=== PATIENT | female | born 1965 | race Caucasian/White ===

== ENCOUNTER → 2016-09-05 | Outpatient (CLI) | payer BC ==
[~2016-09-05] MED LIST: NF-KET2% TOP
--- NOTE | 2016-09-05 09:51 | Diagnostic Imaging Report ---
PROCEDURE: MRI left joint lower extremity without contrast. TECHNIQUE: Multiplanar, multisequence non contrast-enhanced MRI of the left lower extremity was accomplished. MRI LT LOW EXT JOINT W/O CON TECHNIQUE: Multiplanar, multisequence MR imaging of the left knee was performed without contrast. COMPARISON: None available. INDICATION: Left knee pain and popping sensation. FINDINGS: MENISCI Medial meniscus: Normal. Lateral meniscus: Normal. LIGAMENTS ACL: Intact. PCL: Intact. MCL: Intact. LCL: The lateral collateral ligamentous complex is intact. EXTENSOR MECHANISM The extensor mechanism is intact. Focal edema within the superior lateral aspect of the infrapatellar fat pad can be seen with patellar maltracking.? The trochlea is shallow but maintains a concave configuration. CARTILAGE Medial compartment: Medial compartment articular cartilage is well preserved without focal high-grade chondromalacia. Lateral compartment: The lateral compartment articular cartilage is preserved without high-grade chondromalacia. Patellofemoral compartment: Multifocal full-thickness chondral loss and fissuring in the medial and lateral patellar facets, most pronounced inferiorly. BONE No fracture, stress fracture or osteonecrosis. SOFT TISSUE: Small knee joint effusion with mild synovitis. There is a irregular and elongated multiseptated ganglion arising from the posterior superior aspect of the superior joint capsule and extending into the deep popliteal fat. Surrounding non-masslike T2 hyperintensities with the space suggests a ganglion may have recently ruptured. Small Cuevas's cyst is present. IMPRESSION: 1. 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 2. Findings suggestive of patellar maltracking. The trochlea is shallow but maintains a concave configuration. 3. Menisci are intact. 4. Small knee joint effusion with mild synovitis. Dictated by: Dictated on workstation # [id number]
== END ==
LOC: RAD 08:27
PROVIDERS: ATTEND Family Medicine
DX: M25.562 Pain in left knee (principal); M94.262 Chondromalacia, left knee; M25.462 Effusion, left knee
CPT/HCPCS: 73721